=== PATIENT | female | born 1985 | race Hispanic/Latino ===

== ENCOUNTER 2024-02-12 21:05 | Emergency (ER) | payer SELFPAY ==
[~2024-02-12] VITALS: Ht 147.3 cm; Wt 68.0 kg
[~2024-02-12 21:05] MED LIST: NAPROXEN500 MG PO
[2024-02-12] MEDS ORDERED: METHOCARBAMOL 500 MG/TAB PO ONE (21:25)
[2024-02-12] MEDS ORDERED: ACETAMINOPHEN 500 MG TAB PO ONE (21:25)
[2024-02-12 22:01] VITALS: BP 136/79
[2024-02-12 23:05] VITALS: BP 153/86
[2024-02-12 23:31] VITALS: BP 112/64
[2024-02-13] VITALS: BP 94/67
[2024-02-13 00:30] VITALS: BP 111/59
[2024-02-13 00:50] VITALS: BP 111/59
== END 2024-02-13 00:50 | disposition home or self-care (01) | DRG 999 ==
LOC: ED 21:05
DX: S00.93XA Contusion of unspecified part of head, initial encounter (principal); S06.9X9A Unspecified intracranial injury with loss of consciousness of unspecified duration, initial encounter; M25.551 Pain in right hip; M25.561 Pain in right knee; Y00.XXXA Assault by blunt object, initial encounter; Y92.009 Unspecified place in unspecified non-institutional (private) residence as the place of occurrence of the external cause